=== PATIENT | female | born 1940 | race Caucasian/White ===

== ENCOUNTER 2017-01-31 06:07 | Observation (INO) | payer MEDICARE ==
[2017-01-28 14:55] LABS: HEMOGLOBIN 15.1 g/dL (12.0-16.0)
[2017-01-28 15:08] LABS: BUN (BLOOD UREA NITROGEN) 8 MG/DL (6-23); CALCIUM, SERUM 9.6 MG/DL (8.5-10.4); CHLORIDE, SERUM 103 MMOL/L (96-112); CO2 (CARBON DIOXIDE) 30 MMOL/L (24-34); GFR AFRICAN AMERICAN 63 ML/MIN (>=60); GFR NON AFRICAN AMERICAN 55 ML/MIN (>=60); GLUCOSE, SERUM 110 MG/DL (60-99); POTASSIUM, SERUM 4.3 MMOL/L (3.5-5.3); SODIUM, SERUM 141 MMOL/L (135-148)
--- NOTE | ~2017-01-31 | OP ---
Record Of Operation [facility] [address] [place]. [address] NAME: BERLIN MALDONADO : 40 STATUS : ADM IN [facility]#: [id number] AGE: 76 ADM/REG DATE : 01/31/17 MR#: [id number] REPORT SERV DATE: 01/31/17 DICTATED BY: MAURO ROCHA DATE: 01/31/17 REPORT STATUS : Draft TRANSCRIBED BY: MODL DATE: 01/31/17 DATE OF PROCEDURE: 01/31/2017 PREOPERATIVE DIAGNOSES: 1. 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 2. Hypertension. 3. Obesity. POSTOPERATIVE DIAGNOSES: 1. 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 2. Hypertension. 3. Obesity. PROCEDURE: Repair of incarcerated obstructed paraesophageal hernia with Jimenez fundoplication. ANESTHESIA: General. SURGEON: Mauro Rocha M.D. LANDSCAPE HORTICULTURE INSTRUCTOR: Hakeem. COMPLICATIONS: None. DRAINS: None. ESTIMATED BLOOD LOSS: 75 mL. FINDINGS: The patient was noted to have a paraesophageal hernia with approximately 3/4 of the stomach in the chest with organoaxial torsion noted that was detorsed and reduced with repair of the hiatal hernia and Jimenez fundoplication loosely over 40 mm bougie. OPERATIVE TECHNIQUE: The patient was brought to the operating room, placed on the table in supine position. She had preoperative IV antibiotics. She had sequential hose in place. She voided prior to procedure. She underwent general endotracheal anesthesia and NG tube and Ramos catheter were placed. She was then prepped and draped in sterile fashion and at this point a time-out was completed. Local anesthesia was instilled to the left of the midline and a transverse incision was made. The Veress needle inserted and water drop test safely performed. An 8 mm incision was made and after pneumoperitoneum was obtained a robotic trocar was placed followed by laparoscope. There was no evidence of Veress or trocar injury. The patient then had a 12 mm right midclavicular line. Trocar placed at the level just above the umbilicus and an 8-mm trocar placed in the right upper quadrant. This is a robotic trocar. The patient then had two trocars placed on the left upper abdomen. One at the midclavicular line and one far lateral, they are both 8 mm robotic trocars and all trocars placed under direct visualization. The patient was then placed in reverse Trendelenburg and at this point the robot was brought to the patient's left side as the Record Of Operation [facility] [address] [place]. [address] NAME: BERLIN MALDONADO : 40 STATUS : ADM IN PAT#: [id number] AGE: 76 ADM/REG DATE : 01/31/17 MR#: [id number] REPORT SERV DATE: 01/31/17 DICTATED BY: MAURO ROCHA DATE: 01/31/17 REPORT STATUS : Draft TRANSCRIBED BY: MODDaria DATE: 01/31/17 patient cart and it was targeted and docked. The camera was inserted and the instruments were then inserted under direct visualization. After a stab incision was made just to the left of the xiphoid 2 cm below the junction and the Cameron retractor was inserted under direct visualization and elevated the left lateral lobe of the liver. It was placed to oliveira that arm in good position. The instruments were then inserted and the procedure began as the gastrohepatic ligament was divided. Taken down to the right negro, which was carefully bluntly dissected, preserving the peritoneum to the junction of the left crura. The dissection continued with the hook initially and atraumatic graspers. The dissection continued over the esophagus at the hiatus and the hernia sac was then entered, and dissected circumferentially using the vessel sealer. This allowed the entire stomach to be reduced out of the abdomen and detorsed as well. It was dilated proximal and after being reduced this NG tube was placed to suction and the stomach was reduced. At this point, the greater curvature of the stomach was identified and using the Harmonic Scalpel, the short gastric vessels were taken down with care taken to preserve the stomach down the level of the left negro with care taken not to involve the spleen. This allowed the entire fundus to be completely mobilized and at this point retroesophageal dissection continued. The hernia sac was completely dissected circumferentially and blunt dissection ensued for approximately 6 to 7 cm into the chest to get enough esophageal length to perform the wrap without tension. A first 24 mm and then a 40 mm bougie was placed under direct visualization without difficulty. The patient then had the hiatus hernia repaired with 5 interrupted [id number] 2-0 Ethibond sutures. The fundus of the stomach was then passed from left to right under the esophagus and was noted to sit on the right side of the esophagus without any graspers or tension. The fundoplication was then completed approximately 2 cm length with grasping of the fundus and a small amount of esophagus and the stomach passed underneath on the other side of the esophagus to complete the Jimenez fundoplication. A "shoeshine technique" was used to ensure no unwanted attention on the wrap. The two sutures were placed approximately 2 cm apart and tied with excellent reduction and no tension of the wrap. The abdomen was then thoroughly irrigated. There was no evidence of any other bleeding. The bougie was removed, an NG tube was then placed. There was no evidence of any other visual abnormalities in the operative field. The instruments and trocars were removed after the 12 mm trocar site was closed with a suture pass device. The instruments and trocars were then removed under direct visualization as the pneumoperitoneum was aspirated. The incisions were closed using interrupted Vicryl suture, Monocryl suture followed by Dermabond on the skin. The Ramos was removed and the patient was taken to recovery room for postoperative chest x-ray and monitoring. JOVANY/ALYSSA Mauro Rocha M.D. / [id number] CC: Mauro Rocha M.D.
[~2017-01-31 06:07] MED LIST: ACET500CAP PO; ASAB PO; COZ50 PO; LORT7 PO; METHOC500B PO; RELA5 PO; TOPXL25 PO; ULTRAM50 PO
[2017-02-01] MEDS ORDERED: NORCO1 TA2 PO (10:35)
== END 2017-02-01 11:30 | disposition home or self-care (01) ==
LOC: SDC/OF 06:07 → PACU 12:34 → 4SO 15:44
PROVIDERS: Surgery
PROC: 0BQR4ZZ (ICD-10-PCS; 2017-01-31)
PROC: 0BQS4ZZ (ICD-10-PCS; principal; 2017-01-31 07:00)
DX: K44.0 Diaphragmatic hernia with obstruction, without gangrene (principal); I10 Essential (primary) hypertension; E66.01 Morbid (severe) obesity due to excess calories; K21.9 Gastro-esophageal reflux disease without esophagitis; Z79.899 Other long term (current) drug therapy; Z88.8 Allergy status to other drugs, medicaments and biological substances; Z90.710 Acquired absence of both cervix and uterus; Z90.49 Acquired absence of other specified parts of digestive tract; Z82.49 Family history of ischemic heart disease and other diseases of the circulatory system; Z68.30 Body mass index [BMI] 30.0-30.9, adult; Z79.82 Long term (current) use of aspirin; Z98.41 Cataract extraction status, right eye; Z98.42 Cataract extraction status, left eye; Z98.890 Other specified postprocedural states; Z98.1 Arthrodesis status
CPT/HCPCS: 43281; G0378; 71010; 80048; 85014; 85018; 93005; 96372; 96374; 96375; 96376; A9270-GY; J0360; J0690; J2250; J2270; J2405; J2710; J2795; J3010

== ENCOUNTER 2017-03-22 14:38 | Inpatient (IN) | payer MEDICARE ==
--- NOTE | ~2017-03-22 | HP ---
History And Physical [facility] [address] [place]. [address] NAME: BERLIN MALDONADO : 40 STATUS : DIS IN PAT#: [id number] AGE: 76 ADM/REG DATE : 03/22/17 MR#: [id number] REPORT SERV DATE: 03/24/17 DICTATED BY: TAMIKO MCCORMICK DATE: 03/22/17 REPORT STATUS : Draft TRANSCRIBED BY: ALYSSA DATE: 03/22/17 DATE OF ADMISSION: 03/22/2017 CHIEF COMPLAINT: Left flank pain and urinary frequency. HISTORY OF PRESENT ILLNESS: This is a 76-year-old female with medical history of hypertension, coronary artery disease, who presented to the hospital with complaints of left flank pain and urinary frequency of three days duration. The patient reports that she was in her usual state of health until three days ago when she developed urinary frequency, dysuria, nausea and vomiting. She reports associated subjective fever and chills. She also reported associated left flank pain, 10/10 in severity pain, aching in nature radiating to the groin. No associated hematuria. She also reports associated nausea, vomiting, and loss of appetite. She reports cough that is clear of whitish sputum. Denies any history of ill contacts. PAST MEDICAL HISTORY: 1. 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 Mauro Currie on 01/31/2017. 2. Coronary artery disease, status post left heart catheterization on 12/13/[address] Avilez. Findings showed left main coronary artery ostial calcification with a 30% to 40% stenosis. No stents placed. 3. Hypertension. PAST SURGICAL HISTORY: 1. L4-L5 laminectomy done several years ago. FAMILY HISTORY: Significant for coronary artery disease. She had a brother with coronary artery disease diagnosed at the age of 40 who at the age of 60. Father of lung cancer. Mother of liver cirrhosis due to hepatitis C. ALLERGY HISTORY: She denies any known drug allergy. SOCIAL HISTORY: She denies smoking cigarettes, drinking alcohol, or illicit drug use. REVIEW OF SYSTEMS: A 12-point review of systems performed, positive findings as per HPI. All other systems essentially negative. PHYSICAL EXAMINATION: VITALS SIGNS: Blood pressure 125/63, temperature 98.1, pulse 129, respiratory 20, saturating 97% on room air. GENERAL: In acute distress due to pain. Lying in bed in a supine position, bent over in pain. HEENT: Pupils equal, round, and reactive. Extraocular muscle intact. Anicteric not pale. Oral mucosa dry. History And Physical [address] [address] NAME: BERLIN MALDONADO : 40 STATUS : DIS IN PAT#: [id number] AGE: 76 ADM/REG DATE : 03/22/17 MR#: [id number] REPORT SERV DATE: 03/24/17 DICTATED BY: TAMIKO MCCORMICK DATE: 03/22/17 REPORT STATUS : Draft TRANSCRIBED BY: ALYSSA DATE: 03/22/17 CHEST: Nontender. Equal expansion. LUNGS: Clear to auscultation bilaterally. ABDOMEN: Bowel sounds normoactive. Soft, nontender. Positive left CVA tenderness. EXTREMITIES: No pedal edema. NEURO: Alert and oriented x3. Strength in all extremities 5/5. LABORATORY DATA: Hematology: WBC 15.7, hemoglobin 12.8, hematocrit 39.5, platelet 229. Chemistry: Sodium 139, potassium 3.2, chloride 101, bicarb 28, BUN 14, creatinine 1.09. GFR 49. Glucose 146, albumin 2.9, total bilirubin 1.2. Alkaline phosphatase 198, AST 21, ALT 24, lipase 64, troponin less than 0.02. Urinalysis: Leukocyte esterase large, bacteria few. CT of abdomen and pelvis, impression: 1. Persistent pleural effusion left lung base associated with some atelectasis changes. This is nonspecific may be the source of the left abdominal pain. 2. Gallstones. 3. Changes in the left kidney, very mild asymmetric, question of recent passage of stone. Prior hysterectomy. 4. Diverticulosis. Chest x-ray, impression: 1. Mild cardiomegaly. 2. Development of some nonspecific atelectasis left lung base. Remaining lungs are clear. Nodules are lying off in-place. ASSESSMENT AND PLAN: 1. Sepsis. 2. Pyelonephritis. 3. Urinary tract infection. 4. Hypertension. 5. Sinus tachycardia. 6. History of coronary artery disease. 7. History of esophageal hernia status post surgical repair. PLAN: 1. Sepsis likely due to pyelonephritis from UTI. The patient was noted to have one leukocytosis, tachycardia with a possible source of infection (urinary tract). The patient's blood cultures were taken x2. Urine culture is pending. The patient is currently on IV fluids and received IV Rocephin in the ER. I will continue broad- spectrum antibiotics pending results of urine and cultures. I will admit the patient to inpatient status as the patient is unable to tolerate p.o. Continues to have nausea and vomiting. We will give Zofran for symptomatic relief of nausea and vomiting. We will continue gentle IV fluids at this time. I will order a bilateral renal ultrasound to further clarify the possibility of renal stones in this patient. 2. Hypertension. I will continue the patient's home dose of metoprolol. I will hold off losartan given mild elevation in creatinine. ADMISSION STATUS: Inpatient. History And Physical [address] [address] NAME: BERLIN MALDONADO : 40 STATUS : DIS IN PAT#: [id number] AGE: 76 ADM/REG DATE : 03/22/17 MR#: [id number] REPORT SERV DATE: 03/24/17 DICTATED BY: TAMIKO MCCORMICK DATE: 03/22/17 REPORT STATUS : Draft TRANSCRIBED BY: ALYSSA DATE: 03/22/17 ADMISSION DISPOSITION: Med/Surg. CODE STATUS: Limited DNR. The patient do not want to be intubated but (one chest compression). DVT prophylaxis. Heparin subcutaneous. IOO/MODL Tamiko Mccormick MD / [id number] CC: Elicia Seymour NP
--- NOTE | ~2017-03-22 | DS ---
Discharge Summary [facility] [address] [place]. [address] NAME: BERLIN MALDONADO : 40 STATUS : ADM IN [facility]#: [id number] AGE: 76 ADM/REG DATE : 03/22/17 MR#: [id number] REPORT SERV DATE: 03/24/17 DICTATED BY: YANG REAVES DATE: 03/24/17 REPORT STATUS : Draft TRANSCRIBED BY: MODL DATE: 03/24/17 ADMISSION DATE: 03/22/2017 DISCHARGE DATE: 03/24/2017 FINAL HOSPITAL DIAGNOSES: 1. Possible pyelo, versus passed stone, versus urinary tract infection. 2. History of hypertension. CONSULTATIONS: None. PROCEDURES: CT of the abdomen and pelvis done on 03/22/2017, showing a small left pleural effusion, atelectatic changes, nonspecific gallstones without signs of obstruction, left kidney mild asymmetry, question of recent passage of stone, and diverticulosis. CURRENT PHYSICAL FINDINGS IN HISTORY OF PRESENT ILLNESS: Please see initial dictated H and P. in brief, the patient is a 76-year-old female, who presented with complaint of left flank pain, nausea, vomiting, subjective fever, without dysuria increasing several days prior to admission. Vital signs at time of admission, on hospital day #1, she had a T-max of 102.8. She has had no recurrent fever since. Initial vital signs showed a BP of 125/63, pulse of 129 which is now normalized. LABORATORY DATA: Initial creatinine was 1.09, subsequent was 0.75 and 0.5. Initial procalcitonin was 3.96, subsequent today improved at 1.66. She had mild hypokalemia which was corrected and resolved. She had a normal lipase. Normal troponin. Normal TSH. A normal BNP. Normal lactate. Initial white count was 15.7, subsequent was 9.9, and 5.4. Initial urinalysis was positive with large amount of LE, 65 WBCs, and positive bacteria. Blood cultures one of two is positive for coag-negative Staph, probable contamination. Urine grew out E coli that was sensitive to all tested antibiotics. HOSPITAL COURSE: The patient was admitted. She was felt to have probable UTI pyelo of possible passed stone. She was started on Rocephin, given IV fluids, antipyretics, and DVT prophylaxis. Her Cozaar was held given her blood pressure and concern for sepsis. Serial labs were followed as noted above. Procalcitonin, WBC, and fever curve all improved. Symptomatically, the patient has been up and ambulating. She states at home she normally uses a walker and family helps her when she first gets up. She did have surgery approximately a month ago and she has been a little slower since then. Her pain has subsided. She is voiding fine without the catheter. She has had no further nausea or vomiting. She is tolerating p.o. She feels stable for DC. DISPOSITION: She will be discharged home. MEDICATIONS: Toprol-XL 25 one per day, B12, Cozaar 100, and Aspercreme. She will avoid getting up without assistance until she feels back to her baseline. She will follow up with her PCP in seven to 10 days post hospital followup, make sure her UTI has cleared, make sure her hemoglobin has stabilized, and any other needs that she may have, her Discharge Summary [address] [place]. [address] NAME: BERLIN MALDONADO : 40 STATUS : ADM IN [facility]#: [id number] AGE: 76 ADM/REG DATE : 03/22/17 MR#: [id number] REPORT SERV DATE: 03/24/17 DICTATED BY: YANG REAVES DATE: 03/24/17 REPORT STATUS : Draft TRANSCRIBED BY: ALYSSA DATE: 03/24/17 hemoglobin drop was felt nonspecific and probably secondary to rehydration. DICTATED BY: Yang Reaves M.D. TLRakesh/ALYSSA Yang Reaves M.D. / [id number] CC: Elicia Seymour, YULISSA
[2017-03-22 12:40] LABS: BASOPHILS 0.1 %; BASOPHILS ABSOLUTE 0.02 10/3/uL (0.0-0.16); EOSINOPHILS 0.1 %; EOSINOPHILS ABSOLUTE 0.01 10/3/uL (0.0-0.53); ER CBC TAT 0 Hrs 08 Mins; HEMOGLOBIN 12.8 g/dL (12.0-16.0); IMMATURE GRANULOCYTES 0.4 %; IMMATURE GRANULOCYTES ABSOLUTE 0.06 10/3/uL (0.0-0.11); LYMPHOCYTES 4.1 %; LYMPHOCYTES ABSOLUTE 0.65 10/3/uL (0.67-4.30); MEAN CORPUS HGB CONC 32.4 g/dL (32.0-36.0); MEAN CORPUSCULAR HEMOGLOB 29.6 pg (26.0-34.0); MEAN CORPUSCULAR VOLUME 91.4 fL (80-100); MEAN PLATELET VOLUME 9.9 fL (9.2-13.0); MONOCYTES 4.3 %; MONOCYTES ABSOLUTE 0.68 10/3/uL (0.21-1.20); PLATELET COUNT 299 10/3/uL (150-400); RBC DISTRIBUTION WIDTH 14.4 % (12.0-16.0); RED CELL COUNT 4.32 10/6/uL (4.0-5.6); WHITE BLOOD CELLS 15.7 10/3/uL (4.5-10.5)
[2017-03-22 12:41] LABS: HEMATOCRIT 39.5 % (36.0-48.0); MANUAL DIFF NO %
[2017-03-22 12:47] LABS: INTERNATIONAL NORMAL RATI 1.1 UNITS (-); PARTIAL THROMBO TIME 33.4 SEC (22.5-37.2); PROTIME (NOT ORD) 14.5 SEC (12.0-14.5)
[2017-03-22 12:57] LABS: ALBUMIN 2.9 G/DL (3.5-5.0); CALCIUM, SERUM 8.8 MG/DL (8.5-10.4); CHEST PAIN PROFILE TAT 0 Hrs 25 Mins; CHLORIDE, SERUM 101 MMOL/L (96-112); CO2 (CARBON DIOXIDE) 28 MMOL/L (24-34); CREATININE 1.09 MG/DL (0.55-1.02); DIRECT BILIRUBIN 0.4 MG/DL (0.0-0.4); GFR AFRICAN AMERICAN 57 ML/MIN (>=60); GFR NON AFRICAN AMERICAN 49 ML/MIN (>=60); POTASSIUM, SERUM 3.2 MMOL/L (3.5-5.3); SGOT(AST) 24 U/L (5-40); SGPT(ALT) 21 U/L (5-65); SODIUM, SERUM 139 MMOL/L (135-148); TROPONIN I <0.02 NG/ML (<0.05)
[2017-03-22 12:58] LABS: ALKALINE PHOSPHATASE 198 U/L (45-117); BUN (BLOOD UREA NITROGEN) 14 MG/DL (6-23); GLUCOSE, SERUM 146 MG/DL (60-99); INDIRECT BILIRUBIN(NOT ORDER) 0.8 MG/DL (0.1-0.9); TOTAL BILIRUBIN 1.2 MG/DL (0-1.2); TOTAL PROTEIN 7.6 G/DL (6.0-8.5)
[2017-03-22 13:08] LABS: ASCORBIC ACID (UR NOT ORDER) NEG (NEG); BILIRUBIN, URINE SMALL (NEG); ER URINALYSIS TAT 0 Hrs 13 Mins; KETONE, URINE NEGATIVE (NEG); LEUKOCYTE ESTERASE(NOT OR LARGE (NEG); NITRITE (URINE) NEG (NEG); WBC (NOT ORDERED) (RFLEX) 65 (0-5)
[~2017-03-22 14:38] MED LIST changes: +NORCO1 TA2 PO
[2017-03-22] MEDS ORDERED: TOPXL25 PO (15:30)
[2017-03-22] MEDS ORDERED: COZAAR100 MG PO (15:30)
[2017-03-22] MEDS ORDERED: B121000P IM (15:32)
[2017-03-22] MEDS ORDERED: ASPERCREME TOP (15:33)
[2017-03-22 19:13] LABS: FREE T4 1.52 NG/DL (0.76-1.46); PHOSPHORUS, SERUM 3.1 MG/DL (2.5-4.5)
[2017-03-22 19:36] LABS: PROCALCITONIN 3.96 ng/mL (<0.5)
[2017-03-23 04:07] LABS: BASOPHILS 0.2 %; BASOPHILS ABSOLUTE 0.02 10/3/uL (0.0-0.16); EOSINOPHILS 0.5 %; EOSINOPHILS ABSOLUTE 0.05 10/3/uL (0.0-0.53); HEMOGLOBIN 11.1 g/dL (12.0-16.0); IMMATURE GRANULOCYTES 0.3 %; IMMATURE GRANULOCYTES ABSOLUTE 0.03 10/3/uL (0.0-0.11); LYMPHOCYTES 10.9 %; LYMPHOCYTES ABSOLUTE 1.08 10/3/uL (0.67-4.30); MEAN CORPUS HGB CONC 31.4 g/dL (32.0-36.0); MEAN CORPUSCULAR HEMOGLOB 28.9 pg (26.0-34.0); MEAN CORPUSCULAR VOLUME 91.9 fL (80-100); MONOCYTES 7.5 %; MONOCYTES ABSOLUTE 0.74 10/3/uL (0.21-1.20); NEUTROPHILS 80.6 %; NEUTROPHILS ABSOLUTE 8.01 10/3/uL (2.02-8.40); PLATELET COUNT 292 10/3/uL (150-400); RBC DISTRIBUTION WIDTH 14.6 % (12.0-16.0); RED CELL COUNT 3.84 10/6/uL (4.0-5.6); WHITE BLOOD CELLS 9.9 10/3/uL (4.5-10.5)
[2017-03-23 04:08] LABS: HEMATOCRIT 35.3 % (36.0-48.0); MANUAL DIFF NO %
[2017-03-23 04:27] LABS: ALBUMIN 2.6 G/DL (3.5-5.0); BUN (BLOOD UREA NITROGEN) 14 MG/DL (6-23); CALCIUM, SERUM 8.3 MG/DL (8.5-10.4); CHLORIDE, SERUM 104 MMOL/L (96-112); CO2 (CARBON DIOXIDE) 29 MMOL/L (24-34); CREATININE 0.75 MG/DL (0.55-1.02); GFR AFRICAN AMERICAN 90 ML/MIN (>=60); GFR NON AFRICAN AMERICAN 77 ML/MIN (>=60); POTASSIUM, SERUM 3.5 MMOL/L (3.5-5.3); SGOT(AST) 20 U/L (5-40); SGPT(ALT) 19 U/L (5-65); SODIUM, SERUM 139 MMOL/L (135-148); TOTAL PROTEIN 6.6 G/DL (6.0-8.5)
[2017-03-23 04:28] LABS: A/G RATIO 0.7 (0.7-1.9); ALKALINE PHOSPHATASE 156 U/L (45-117); GLUCOSE, SERUM 108 MG/DL (60-99); TOTAL BILIRUBIN 0.7 MG/DL (0-1.2)
[2017-03-24 03:55] LABS: BASOPHILS 0.2 %; BASOPHILS ABSOLUTE 0.01 10/3/uL (0.0-0.16); EOSINOPHILS ABSOLUTE 0.16 10/3/uL (0.0-0.53); HEMOGLOBIN 9.9 g/dL (12.0-16.0); IMMATURE GRANULOCYTES 0.4 %; IMMATURE GRANULOCYTES ABSOLUTE 0.02 10/3/uL (0.0-0.11); LYMPHOCYTES 16.9 %; LYMPHOCYTES ABSOLUTE 0.91 10/3/uL (0.67-4.30); MEAN CORPUS HGB CONC 32.1 g/dL (32.0-36.0); MEAN CORPUSCULAR HEMOGLOB 29.4 pg (26.0-34.0); MEAN CORPUSCULAR VOLUME 91.4 fL (80-100); MEAN PLATELET VOLUME 9.5 fL (9.2-13.0); MONOCYTES 7.6 %; MONOCYTES ABSOLUTE 0.41 10/3/uL (0.21-1.20); NEUTROPHILS 71.9 %; NEUTROPHILS ABSOLUTE 3.86 10/3/uL (2.02-8.40); PLATELET COUNT 272 10/3/uL (150-400); RBC DISTRIBUTION WIDTH 14.4 % (12.0-16.0); RED CELL COUNT 3.37 10/6/uL (4.0-5.6)
[2017-03-24 03:59] LABS: HEMATOCRIT 30.8 % (36.0-48.0); WHITE BLOOD CELLS 5.4 10/3/uL (4.5-10.5)
[2017-03-24 04:00] LABS: MANUAL DIFF NO %
[2017-03-24 04:09] LABS: CALCIUM, SERUM 8.1 MG/DL (8.5-10.4); CHLORIDE, SERUM 106 MMOL/L (96-112); CO2 (CARBON DIOXIDE) 29 MMOL/L (24-34); GFR AFRICAN AMERICAN 109 ML/MIN (>=60); GFR NON AFRICAN AMERICAN 94 ML/MIN (>=60); GLUCOSE, SERUM 96 MG/DL (60-99); POTASSIUM, SERUM 3.5 MMOL/L (3.5-5.3); SODIUM, SERUM 139 MMOL/L (135-148)
[2017-03-24 04:14] LABS: BUN (BLOOD UREA NITROGEN) 8 MG/DL (6-23)
[2017-03-24 04:39] LABS: PROCALCITONIN 1.66 ng/mL (<0.5)
[2017-03-24] MEDS ORDERED: LEVAQUIN750 MG PO (12:29)
== END 2017-03-24 12:55 | disposition home or self-care (01) | DRG 872 ==
LOC: ER 14:38 → CDU1 14:50 → CDU2 16:07
PROVIDERS: Emergency Medicine; Hospitalist
DX: A41.9 Sepsis, unspecified organism (principal); N10 Acute pyelonephritis; N20.0 Calculus of kidney; E87.6 Hypokalemia; I10 Essential (primary) hypertension; M54.9 Dorsalgia, unspecified; I25.10 Atherosclerotic heart disease of native coronary artery without angina pectoris; Z82.49 Family history of ischemic heart disease and other diseases of the circulatory system; K80.20 Calculus of gallbladder without cholecystitis without obstruction; Z90.710 Acquired absence of both cervix and uterus; R00.0 Tachycardia, unspecified; Z98.890 Other specified postprocedural states; Z66 Do not resuscitate; K57.30 Diverticulosis of large intestine without perforation or abscess without bleeding; B96.20 Unspecified Escherichia coli [E. coli] as the cause of diseases classified elsewhere
CPT/HCPCS: 71010; 74176; 80048; 80053; 80076; 81001; 83605; 83690; 83735; 83880; 84100; 84145; 84439; 84443; 84484; 85025; 85610; 85730; 87040; 87077; 87086; 87150; 87186; 93005; 96374; 96375; 99285; A9270-GY; C9113; J1170; J2405